=== PATIENT | female | born 1955 | race Caucasian/White ===

== ENCOUNTER 2016-12-12 07:15 | Emergency (ER) | payer MEDICAID ==
[2016-12-12 07:37] VITALS: BMI 29.9
--- NOTE | 2016-12-12 07:39 | ED PDOC ---
HPI: Chest Pain Time Seen by Provider: 12/12/16 07:23 Chief Complaint (Nursing): Chest Pain Chief Complaint (Provider): Chest Pain History Per: Patient History/Exam Limitations: no limitations Onset/Duration Of Symptoms: Days (x4 days) Current Symptoms Are (Timing): Still Present Additional Complaint(s): 61 year old female with a past medical history of diabetes and hypertension who presents to the emergency department with back pain that radiates to the chest region x4 days. Associated with a fever (101.0), productive cough, and white sputum. Denies shortness of breath. Past Medical History Reviewed: Historical Data, Nursing Documentation, Vital Signs Vital Signs: Last Vital Signs Temp 97.8 F 12/12/16 07:35 Pulse 78 12/12/16 07:35 Resp 16 12/12/16 07:35 BP 148/71 12/12/16 07:35 Pulse Ox 98 12/12/16 08:56 - Medical History PMH: Arthritis, Colonic Polyps, HTN, Hypercholesterolemia, Kidney Stones, Chronic Kidney Disease, Rheumatoid Arthritis Denies: CHF, COPD, Hypothyroidism - Surgical History Surgical History: Cholecystectomy (1985), Hernia Repair - Family History Family History: States: Unknown Family Hx - Immunization History Hx Tetanus Toxoid Vaccination: No Hx Influenza Vaccination: No Hx Pneumococcal Vaccination: No - Home Medications Home Medications: Ambulatory Orders Medication Instructions Recorded Albuterol HFA [Ventolin HFA 90 2 puff IH Q4H #1 puff 12/12/16 mcg/actuation (8 g)] Atorvastatin [Lipitor] 20 mg PO DAILY 12/12/16 Azithromycin [Zithromax] 250 mg PO DAILY #6 tab 12/12/16 Metoprolol Succinate [Toprol XL] 100 mg PO DAILY 12/12/16 Zolpidem Tartrate [Ambien] 10 mg PO DAILY 12/12/16 traMADol [Ultram] 50 mg PO Q8 #10 tab 12/12/16 - Allergies Allergies/Adverse Reactions: Allergies Allergy/AdvReac Type Severity Reaction Status Date / Time cephalexin Allergy RASH Verified 12/12/16 07:30 Review of Systems ROS Statement: Except As Marked, All Systems Reviewed And Found Negative Constitutional: Positive for: Fever Cardiovascular: Positive for: Chest Pain Respiratory: Positive for: Cough (productive), Sputum (White). Negative for: Shortness of Breath Musculoskeletal: Positive for: Back Pain Physical Exam - Reviewed Nursing Documentation Reviewed: Yes Vital Signs Reviewed: Yes - Physical Exam Appears: Positive for: Non-toxic, No Acute Distress Head Exam: Positive for: ATRAUMATIC, NORMAL INSPECTION, NORMOCEPHALIC Skin: Positive for: Normal Color, Warm, Dry Cardiovascular/Chest: Positive for: Regular Rate, Rhythm. Negative for: Murmur Respiratory: Positive for: Rhonchi (at the bases). Negative for: Wheezing, Respiratory Distress Gastrointestinal/Abdominal: Positive for: Normal Exam, Soft. Negative for: Tenderness Extremity: Positive for: Normal ROM. Negative for: Tenderness, Swelling Neurologic/Psych: Positive for: Alert, Oriented (x3) - Laboratory Results Result Diagrams: 12/12/16 07:48 12/12/16 07:48 - ECG O2 Sat by Pulse Oximetry: 98 (RA) Pulse Ox Interpretation: Normal Medical Decision Making Medical Decision Making: Time: 07:33 Initial Impression: Back pain radiating to chest region Initial Plan: --VBG Shock Panel --CMP --EKG --Troponin I --Urine DIP --CBC w. diff --Chest x-ray --Blood Culture --Reevaluation Time: 08:08 --Duoneb 3 ml IH Time:08:53 --Ultram 50 mg PO Scribe Attestation: Documented by Rhoda Garcia, acting as a scribe for Manuel Carter MD. Provider Scribe Attestation: All medical record entries made by the Scribe were at my direction and personally dictated by me. I have reviewed the chart and agree that the record accurately reflects my personal performance of the history, physical exam, medical decision making, and the department course for this patient. I have also personally directed, reviewed, and agree with the discharge instructions and disposition. Disposition - Clinical Impression Clinical Impression: Bronchitis - Patient ED Disposition Is Patient to be Admitted: No Counseled Patient/Family Regarding: Studies Performed, Diagnosis, Need For Followup, Rx Given - Disposition Referrals: [facility] [Outside] Disposition: Routine/Home Disposition Time: 09:20 Condition: GOOD Prescriptions: Albuterol HFA [Ventolin HFA 90 mcg/actuation (8 g)] 2 puff IH Q4H #1 puff Azithromycin [Zithromax] 250 mg PO DAILY #6 tab traMADol [Ultram] 50 mg PO Q8 #10 tab Instructions: Acute Bronchitis (ED) Forms: [employer] ([place])
[2016-12-12 08:00] LABS: BASO # 0.1 K/uL (0.0-0.2); BASO % 1.2 % (0.0-2.0); EOS # 0.9 K/uL (0.0-0.7); EOS % 7.1 % (0.0-4.0); HEMATOCRIT 39.2 % (34.0-47.0); LYMPH # 3.3 K/uL (1.0-4.3); LYMPH % 27.4 % (20.0-40.0); MEAN CORPUSCULAR HEMOGLOBIN 28.8 pg (27.0-31.0); MEAN CORPUSCULAR HGB CONC 32.4 g/dL (33.0-37.0); MONO % 8.4 % (0.0-10.0); NEUT # 6.8 K/uL (1.8-7.0); NEUT % 55.9 % (50.0-75.0); NRBC % 0.1 % (0.0-0.0); RED CELL DISTRIBUTION WIDTH 13.7 % (11.5-14.5); WHITE BLOOD COUNT 12.1 K/uL (4.8-10.8)
[2016-12-12 08:04] LABS: VENOUS BLOOD GAS BASE EXCESS 0.3 mmol/L (0.0-2.0); VENOUS BLOOD GAS PCO2 42 mmHg (40-60); VENOUS BLOOD PH 7.39 (7.32-7.43)
[2016-12-12 08:06] LABS: MEAN CELL VOLUME 88.9 fl (81.0-99.0)
[2016-12-12] MEDS ORDERED: Albuterol-Ipratrop 3 mg / 0.5 (3 ml) UD IH STA (08:08)
[2016-12-12 08:10] LABS: ALB/GLOB RATIO 1.3 (1.0-2.1); ALKALINE PHOSPHATASE 68 U/L (38-126); ALT/SGPT 29 U/L (9-52); AST/SGOT 21 U/L (14-36); BILIRUBIN,TOTAL 0.7 mg/dl (0.2-1.3); BLOOD UREA NITROGEN 18 mg/dl (7-17); CALCIUM 9.3 mg/dL (8.4-10.2); CARBON DIOXIDE 21 mmol/L (22-30); CHLORIDE 108 mmol/L (98-107); GFR AFRICAN-AMERICAN > 60; GLUCOSE,RANDOM 115 mg/dL (65-105); POTASSIUM 3.6 MMOL/L (3.6-5.0); SODIUM 145 mmol/l (132-148); TOTAL PROTEIN 7.4 G/DL (6.3-8.2)
[2016-12-12] MEDS ORDERED: Albuterol-Ipratrop 3 mg / 0.5 (3 ml) UD ONE (08:17)
[2016-12-12 09:47] VITALS: BP 133/68; PULSE 75; RESP 14; TEMP 97.9; O2SAT 100
--- NOTE | 2016-12-12 12:21 | RAD ---
HISTORY: cough COMPARISON: 02/21/2015 TECHNIQUE: Chest PA and lateral FINDINGS: LUNGS: This is PLEURA: No significant pleural effusion identified. No pneumothorax apparent. CARDIOVASCULAR: Normal. OSSEOUS STRUCTURES: No significant abnormalities. VISUALIZED UPPER ABDOMEN: Normal. OTHER FINDINGS: None. IMPRESSION: No active disease.
--- NOTE | 2016-12-13 12:15 | CARD ---
APPROVED REPORT EKG Measurement Heart [id number] <Conclusion> Normal sinus rhythm Normal ECG
== END 2016-12-12 09:39 | disposition home or self-care (01) ==
LOC: H.ER 07:15
DX: J20.9 Acute bronchitis, unspecified (principal); E11.9 Type 2 diabetes mellitus without complications; I10 Essential (primary) hypertension; M54.9 Dorsalgia, unspecified